=== PATIENT | male | born 1965 | race Caucasian/White ===

== ENCOUNTER 2016-11-03 17:03 | Emergency (ER) | payer OTHER ==
[~2016-11-03] VITALS: Ht 167.6 cm; Wt 99.8 kg
[2016-11-03 17:18] VITALS: BP 159/94; PULSE 77; RESP 16; TEMP 97.8; O2SAT 97
--- NOTE | 2016-11-03 17:30 | NUR ---
PT STATES HE WAS LIFTING SOMETHING HEAVY ABOUT 60 LBS TODAY AT WORK AND SUDDENLY FELT LIKE SOMETHING WAS PULLING APART IN HIS BACK/LEFT SIDE OF ABD RADIATING DOWN TO HIS LEFT TESTICLE. NO SWELLING TO TESTICLE. PAIN 8/. PT STATES HE FEELS NUMBNESS AND TINGLING TO BOTH LEGS RIGHT NOW AND ALSO HAS PAIN TO HIS BACK STARTING AT HIS UPPER BACK AREA. PT STATES EMPLOYER TOOK HIM TO AN URGENT CARE TYPE OF SETTING AND THEY COULD NOT TREAT HIM AND REFERRED HMI TO AN ER, THUS THEY CAME HERE. PT STATES HE NOTIFIED HIS EMPLOYER RIGHT AWAY. PT HAS FEELING TO BOTH LEGS. AND GOOD PULSES. ABLE TO MOVE BOTH LEGS AND BEND KNEES.
--- NOTE | 2016-11-03 17:44 | NUR ---
SALES/MARKETING AT BEDSIDE FOR EXAM. EXAM CHAPERONED.
[2016-11-03] MEDS ORDERED: KETOROLAC TROMETHAMINE 60 MG/2 ML VIAL IM ONE (17:45)
[2016-11-03] MEDS ORDERED: DIATR MEGLU/DIATRIZ SOD 30 ML SOLUTION PO ONE (18:08)
--- NOTE | 2016-11-03 18:32 | NUR ---
Urine sent to lab.
[2016-11-03 18:40] LABS: BILIRUBIN,URINE 1+ (NEGATIVE); BLOOD, URINE NEGATIVE (NEGATIVE); CLARITY/URINE CLEAR (CLEAR); COLOR,URINE YELLOW (YELLOW); GLUCOSE,URINE TRACE (NEGATIVE); KETONES,URINE TRACE (NEGATIVE); LEUKOCYTE ESTERASE ,URINE NEGATIVE (NEGATIVE); NITRITE, URINE NEGATIVE (NEGATIVE); PH,URINE 6.5 (5.0-8.0); PROTEIN URINE TRACE (NEGATIVE)
[2016-11-03 18:50] LABS: RBC,URINE 0-3 /HPF (0-3)
[2016-11-03 18:51] LABS: BACTERIA,URINE FEW /HPF (None Seen); CALCIUM OXALATE CRYSTALS,UR 0-10 /HPF (None Seen); MUCUS,URINE 1+ /LPF (None Seen); WBC,URINE 0-3 /HPF (0-3)
--- NOTE | 2016-11-03 19:20 | NUR ---
CARE ENDORSED TO ONCOMING SHIFT.
--- NOTE | 2016-11-03 19:20 | NUR ---
PT TAKEN DOWN TO XRAY [facility]IA [facility].
[2016-11-03 20:46] VITALS: BP 145/76; PULSE 79; RESP 17; TEMP 98.4; O2SAT 97
--- NOTE | 2016-11-03 20:46 | NUR ---
Patient given written and verbal discharge instructions and verbalizes understanding. ER CLINICAL PARTNER Darline Cantrell discussed with patient the results and treatment provided. Patient in stable condition. ID arm band removed. Rx of Motrin 800 mg and flexeril 10 mg given. Patient educated on pain management and to follow up with PMD. Pain Scale 4/10. Opportunity for questions provided and answered.
== END 2016-11-03 20:46 | disposition home or self-care (01) ==
LOC: SED 17:03
DX: S39.011A Strain of muscle, fascia and tendon of abdomen, initial encounter (principal); R03.0 Elevated blood-pressure reading, without diagnosis of hypertension; X50.0XXA Overexertion from strenuous movement or load, initial encounter; Y93.89 Activity, other specified; Y92.89 Other specified places as the place of occurrence of the external cause; Y99.8 Other external cause status
CPT/HCPCS: 74176; 81000; 96372; 99285; J1885; Q9964